=== PATIENT | male | born 1995 | race Caucasian/White ===

== ENCOUNTER 2016-11-09 19:25 | Emergency (ER) | payer OTHER ==
[~2016-11-09] VITALS: Ht 188 cm; Wt 99.8 kg
[2016-11-09] MEDS ORDERED: LACTATED RINGERS 1,000 ML IV ONE (19:54)
[2016-11-09 19:59] LABS: BILIRUBIN,URINE NEGATIVE (NEGATIVE); KETONES,URINE NEGATIVE (NEGATIVE); LEUKOCYTE ESTERASE ,URINE NEGATIVE (NEGATIVE); NITRITE,URINE NEGATIVE (NEGATIVE); PH,URINE 6.5 (5-9); PROTEIN,URINE NEGATIVE (NEGATIVE); UROBILINOGEN,URINE NORMAL (NORMAL)
--- NOTE | 2016-11-09 20:07 | ED General ---
General Chief Complaint: Dizziness/Syncope Stated Complaint: DIZZY, L ARMPIT SHARP PAIN Nursing Triage Note: DIZZY Nursing Sepsis Screen: No Definite Risk Source of Information: Patient History of Present Illness Time Seen by Provider: 19:37 Initial Comments PT ARRIVES VIA POV STATES HE WAS WORKING OUT AT THE GYM, AND BEGAN TO GET DIZZY AND HAVE BLURRY VISION AND THEN FELT LETHARGIC BEGAN AT 1900, AND ARE GONE NOW ALSO STATES HE HAD PAIN TO LEFT LATERAL CHEST/AXILLA AREA SOON HE STARTED WORKING OUT--FEELS LIKE PULLED MUSCLE, AND IS ONLY WHEN HE MOVES HIS ARM NO SHORTNESS OF BREATH HAD SLIGHT NAUSEA, NO VOMITING. NOT NAUSEATED NOW NO PARESTHESIAS OR MOTOR DEFICITS NO HEADACHE DENIES RECENT ILLNESS NO HISTORY OF SIMILAR PT STATES HE ATE A PROTEIN BAR FOR BREAKFAST, PANCAKES, PEANUT BUTTER, 3 WHOLE EGGS AND 6 EGG WHITES AT NOON, THEN HAD 2 RICE CAKES AT 1645 HAS DRANK A WHOLE POT OF COFFEE AND 1/2 GALLON OF WATER TODAY PT ALSO TOOK A "STAUNCH" BRAND PRE-WORK OUT PILL TODAY ( CONTAINS CAFFEINE ) -- HAS TAKEN BEFORE WITHOUT PROBLEMS PT ALSO TOOK A "THERMOGENIC" TODAY (ALSO CONTAINS CAFFEINE) PT ALSO TAKES MULTIPLE SUPPLEMENTS INCLUDING CREATINE, GLUCOSAMINE, WHEY PROTEIN , FISH OIL AND MULTIVITAMIN DID TAKE AN ALLERGY PILL THIS AM DENIES STEROID USE OR OTHER STIMULANT USE BESIDES CAFFEINE PT STATES HE HAD 2 MIXED DRINKS LAST PM, AND HAS BEEN DRINKING "QUITE A BIT" LATELY [facility] Allergies and Home Medications Allergies Coded Allergies: No Known Drug Allergies (Unverified , 11/09/16) Home Medications No Active Prescriptions or Reported Meds Constitutional: see HPI, dizziness EENTM: blurred vision, see HPI Respiratory: no symptoms reported Cardiovascular: see HPI Gastrointestinal: see HPI, nausea Genitourinary: no symptoms reported Musculoskeletal: see HPI Skin: no symptoms reported Psychiatric/Neurological: No Symptoms Reported Hematologic/Lymphatic: No Symptoms Reported Immunological/Allergic: no symptoms reported Past Ywfgfkb-Dcrmyw-Didoev Hx Patient Social History Alcohol Use: Occasionally Uses Recreational Drug Use: No Smoking Status: Never a Smoker 2nd Hand Smoke Exposure: No Recent Foreign Travel: No Contact w/Someone Who Travel: No Recent Infectious Disease Expo: No Recent Hopitalizations: No Immunizations Up To Date Tetanus Booster (TDap): Less than 5yrs PED Vaccines UTD: Yes Seasonal Allergies Seasonal Allergies: No Surgeries HX Surgeries: No Respiratory Hx Respiratory Disorders: No Cardiovascular Hx Cardiac Disorders: No Neurological Hx Neurological Disorders: No Reproductive System Hx Reproductive Disorders: No Genitourinary Hx Genitourinary Disorders: No Gastrointestinal Hx Gastrointestinal Disorders: No Musculoskeletal Hx Musculoskeletal Disorders: No Endocrine Hx Endocrine Disorders: No HEENT HX ENT Disorders: No Cancer Hx Cancer: No Psychosocial Hx Psychiatric Problems: No Integumentary HX Skin/Integumentary Disorder: No Blood Transfusions Hx Blood Disorders: No Physical Exam Vital Signs Vital Sign - Last 12Hours 11/09/16 19:34 Temp 98.8 Pulse 93 Resp 16 B/P (MAP) 134/77 Pulse Ox 100 O2 Delivery Room Air Capillary Refill : Less Than 3 Seconds General Appearance: No Apparent Distress, WD/WN HEENT: PERRL/EOMI, TMs Normal, Normal ENT Inspection, Pharynx Normal Neck: Full Range of Motion, Normal Inspection, Non Tender, Supple Respiratory: Normal Breath Sounds, No Accessory Muscle Use, No Respiratory Distress Cardiovascular: Regular Rate, Rhythm, No Edema, No JVD, No Murmur, Normal Peripheral Pulses Gastrointestinal: Normal Bowel Sounds, No Organomegaly, No Pulsatile Mass, Non Tender, Soft Back: Normal Inspection, No CVA Tenderness, No Vertebral Tenderness Extremity: Normal Capillary Refill, Normal Inspection, Normal Range of Motion, Non Tender, No Calf Tenderness, No Pedal Edema Neurologic/Psychiatric: Alert, Oriented x3, No Motor/Sensory Deficits, Normal Mood/Affect, technical support representative II-XII Norm as Tested, No Abnormal Cerebellar Tests Skin: Normal Color, Warm/Dry Progress/Results/Core Measures Results/Orders Lab Results Laboratory Tests Test 11/09/16 19:49 11/09/16 20:04 Range/Units Urine Color YELLOW Urine Clarity CLEAR Urine pH 6.5 5-9 Urine Specific Hunt 1.010 L 1.016-1.022 Urine Protein NEGATIVE NEGATIVE Urine Glucose (UA) NEGATIVE NEGATIVE Urine Ketones NEGATIVE NEGATIVE Urine Nitrite NEGATIVE NEGATIVE Urine Bilirubin NEGATIVE NEGATIVE Urine Urobilinogen NORMAL NORMAL MG/DL Urine Leukocyte Esterase NEGATIVE NEGATIVE Urine RBC (Auto) NEGATIVE NEGATIVE Urine RBC NONE /HPF Urine WBC RARE /HPF Urine Crystals NONE /LPF Urine Bacteria NEGATIVE /HPF Urine Casts NONE /LPF Urine Mucus NEGATIVE /LPF Urine Culture Indicated NO Urine Opiates Screen NEGATIVE NEGATIVE Urine Oxycodone Screen NEGATIVE NEGATIVE Urine Methadone Screen NEGATIVE NEGATIVE Urine Propoxyphene Screen NEGATIVE NEGATIVE Urine Barbiturates Screen NEGATIVE NEGATIVE Ur Tricyclic Antidepressants Screen NEGATIVE NEGATIVE Urine Phencyclidine Screen NEGATIVE NEGATIVE Urine Amphetamines Screen NEGATIVE NEGATIVE Urine Methamphetamines Screen NEGATIVE NEGATIVE Urine Benzodiazepines Screen NEGATIVE NEGATIVE Urine Cocaine Screen NEGATIVE NEGATIVE Urine Cannabinoids Screen NEGATIVE NEGATIVE White Blood Count 10.4 4.3-11.0 10^3/uL Red Blood Count 4.92 4.35-5.85 10^6/uL Hemoglobin 14.7 13.3-17.7 G/DL Hematocrit 43 40-54 % Mean Corpuscular Volume 88 80-99 FL Mean Corpuscular Hemoglobin 30 25-34 PG Mean Corpuscular Hemoglobin Concent 34 32-36 G/DL Red Cell Distribution Width 13.6 10.0-14.5 % Platelet Count 146 130-400 10^3/uL Mean Platelet Volume 11.8 H 7.4-10.4 FL Neutrophils (%) (Auto) 76 H 42-75 % Lymphocytes (%) (Auto) 14 12-44 % Monocytes (%) (Auto) 9 0-12 % Eosinophils (%) (Auto) 1 0-10 % Basophils (%) (Auto) 0 0-10 % Neutrophils # (Auto) 7.9 H 1.8-7.8 X 10^3 Lymphocytes # (Auto) 1.4 1.0-4.0 X 10^3 Monocytes # (Auto) 0.9 0.0-1.0 X 10^3 Eosinophils # (Auto) 0.1 0.0-0.3 10^3/uL Basophils # (Auto) 0.0 0.0-0.1 10^3/uL Sodium Level 139 135-145 MMOL/L Potassium Level 3.5 L 3.6-5.0 MMOL/L Chloride Level 103 98-107 MMOL/L Carbon Dioxide Level 24 21-32 MMOL/L Anion Gap 12 5-14 MMOL/L Blood Urea Nitrogen 27 H 7-18 MG/DL Creatinine 1.09 0.60-1.30 MG/DL Estimat Glomerular Filtration Rate > 60 BUN/Creatinine Ratio 25 Glucose Level 89 70-105 MG/DL Calcium Level 9.5 8.5-10.1 MG/DL Magnesium Level 2.0 1.8-2.4 MG/DL Total Bilirubin 0.6 0.1-1.0 MG/DL Aspartate Amino Transf (AST/SGOT) 39 H 5-34 U/L Alanine Aminotransferase (ALT/SGPT) 51 0-55 U/L Alkaline Phosphatase 51 40-136 U/L Total Creatine Kinase 811 H 30-200 U/L Total Protein 7.0 6.4-8.2 G/DL Albumin 4.7 H 3.2-4.5 G/DL TSH [place] Testing 1.60 0.35-4.94 UIU/ML Serum Alcohol < 10 <10 MG/DL My Orders Orders - CHEY FULLER DO Alcohol (11/09/16 19:50) Comprehensive Metabolic Panel (11/09/16 19:50) Creatine Kinase (11/09/16 19:50) Drug Screen Stat (Urine) (11/09/16 19:50) Magnesium (11/09/16 19:50) Thyroid Analyzer (11/09/16 19:50) Ua Culture If Indicated (11/09/16 19:50) Ekg Tracing (11/09/16 19:50) Monitor-Rhythm Ecg Trace Only (11/09/16 19:50) Saline Lock/Iv-Start (11/09/16 19:54) Saline Lock/Iv-Start (11/09/16 19:54) Lactated Ringers (Lr 1000 Ml Iv Solution (11/09/16 19:54) Cbc With Automated Diff (11/09/16 20:18) Medications Given in ED Current Medications Medications Dose Ordered Sig/Landen Route Start Time Stop Time Status Last Admin Dose Admin Lactated Ringer's 1,000 ml @ 0 mls/hr Q0M ONCE IV 11/09/16 19:54 11/09/16 19:56 DC 11/09/16 20:03 0 MLS/HR Vital Signs/I&O Vital Sign - Last 12Hours 11/09/16 19:34 Temp 98.8 Pulse 93 Resp 16 B/P (MAP) 134/77 Pulse Ox 100 O2 Delivery Room Air Blood Pressure Mean: 96 ECG Initial ECG Impression Time: 19:56 Initial ECG Rate: 87 Initial ECG Rhythm: Normal Sinus Initial ECG Impression: Normal Initial ECG Comparisson: No Previous ECG Available Departure Impression Impression: Primary Impression: Dehydration Additional Impression: Excessive caffeine intake Disposition: 01 HOME, SELF-CARE Condition: Improved Departure-Patient Inst. Referrals: [facility] (PCP) Primary Care Physician Patient Instructions: Dehydration, Adult (DC) Add. Discharge Instructions: INCREASE YOUR WATER INTAKE-DRINK EQUAL AMOUNTS OF WATER AND GATORADE DECREASED YOUR CAFFEINE INTAKE FOLLOW UP WITH [facility] IF SYMPTOMS PERSIST All discharge instructions reviewed with patient and/or family. Voiced understanding. Scripts No Active Prescriptions or Reported Meds CHEY FULLER DO November 09, 2016 20:07
[2016-11-09 20:09] LABS: WBC,URINE RARE /HPF
[2016-11-09 20:22] LABS: BASOPHILS % (AUTO) 0 % (0-10); EOSINOPHILS # (AUTO) 0.1 10^3/uL (0.0-0.3); EOSINOPHILS % (AUTO) 1 % (0-10); LYMPHOCYTES # (AUTO) 1.4 X 10^3 (1.0-4.0); LYMPHOCYTES % (AUTO) 14 % (12-44); MEAN CORPUSCULAR HEMOGLOBIN 30 PG (25-34); MEAN CORPUSCULAR HGB CONC 34 G/DL (32-36); MEAN CORPUSCULAR VOLUME 88 FL (80-99); MEAN PLATELET VOLUME 11.8 FL (7.4-10.4); MONOCYTES # (AUTO) 0.9 X 10^3 (0.0-1.0); MONOCYTES % (AUTO) 9 % (0-12); NEUTROPHILS # (AUTO) 7.9 X 10^3 (1.8-7.8); NEUTROPHILS % (AUTO) 76 % (42-75); PLATELET COUNT 146 10^3/uL (130-400); RED BLOOD COUNT 4.92 10^6/uL (4.35-5.85); RED CELL DISTRIBUTION WIDTH 13.6 % (10.0-14.5); WHITE BLOOD COUNT 10.4 10^3/uL (4.3-11.0)
[2016-11-09 20:36] LABS: ALANINE AMINOTRANSFERASE 51 U/L (0-55); ALBUMIN 4.7 G/DL (3.2-4.5); ALCOHOL < 10 MG/DL (<10); ANION GAP 12 MMOL/L (5-14); ASPARTATE AMINO TRANSFERASE 39 U/L (5-34); BILIRUBIN,TOTAL 0.6 MG/DL (0.1-1.0); BLOOD UREA NITROGEN 27 MG/DL (7-18); BUN/CREATININE RATIO 25; CALCIUM 9.5 MG/DL (8.5-10.1); CARBON DIOXIDE 24 MMOL/L (21-32); CHLORIDE 103 MMOL/L (98-107); CREATINE KINASE 811 U/L (30-200); CREATININE SERUM 1.09 MG/DL (0.60-1.30); GFR ESTIMATED > 60; GLUCOSE 89 MG/DL (70-105); POTASSIUM 3.5 MMOL/L (3.6-5.0); SODIUM 139 MMOL/L (135-145)
[2016-11-09 21:20] VITALS: BP 139/71
== END 2016-11-09 21:14 | disposition home or self-care (01) ==
LOC: ER 19:28
DX: E86.0 Dehydration (principal); F15.988 Other stimulant use, unspecified with other stimulant-induced disorder
CPT/HCPCS: 36415; 80053; 80306; 80320; 81000; 82550; 83735; 84443; 85025; 93005; 93041